=== PATIENT | female | born 1970 | race African-American/Black ===

== ENCOUNTER 2016-10-31 14:56 | Emergency (ER) | payer OTHER ==
--- NOTE | 2016-10-31 15:56 | ER Document Report ---
ED ENT - General Chief Complaint: Sore Throat Stated Complaint: SORE THROAT Time Seen by Provider: 10/31/16 15:22 Mode of Arrival: Ambulatory Information source: Patient Notes: 46-year-old female presents to ED for sore throat that began last week and is progressed all week. She states she has been around her children and grandchildren and they have been tested positive for strep. States that the sore throat is not getting better in fact her pain is up into her ear. TRAVEL OUTSIDE OF THE [place] IN LAST 30 DAYS: No - HPI Patient complains to provider of: Throat problem Onset: Last week Onset/Duration: Worse Quality of pain: Sharp Severity: Moderate Pain Level: 4 Context: Recent Illness Location of pain: Throat Associated symptoms: Ear pain, Sore throat Similar symptoms previously: Yes Recently seen / treated by doctor: No - Related Data Allergies/Adverse Reactions: Penicillins Allergy (Severe, Verified 10/31/16 15:15) shrimp Allergy (Uncoded 10/31/16 15:15) Past Medical History - General Information source: Patient - Social History Smoking Status: Never Smoker Cigarette use (# per day): No Chew tobacco use (# tins/day): No Smoking Education Provided: No Frequency of alcohol use: Rare Drug Abuse: None Occupation: group home, [employer] Lives with: Family Family History: CAD, CVA, Hyperlipidemia, Hypertension, Malignancy Patient has suicidal ideation: No Patient has homicidal ideation: No - Past Medical History Cardiac Medical History: Reports: Hx Hypertension Pulmonary Medical History: Reports: None EENT Medical History: Reports: None Neurological Medical History: Reports: None Endocrine Medical History: Reports: None Renal/ Medical History: Reports: None Malignancy Medical History: Reports: None GI Medical History: Reports: Hx Gastroesophageal Reflux Disease Musculoskeltal Medical History: Reports Hx Musculoskeletal Trauma Skin Medical History: Reports None Psychiatric Medical History: Reports: None Traumatic Medical History: Reports: Hx Fractures - Toe Infectious Medical History: Reports: None Past Surgical History: Reports: Hx Cholecystectomy - Immunizations Immunizations up to date: Yes Hx Diphtheria, Pertussis, Tetanus Vaccination: Yes Review of Systems - Review of Systems Constitutional: Recent illness EENT: Nose discharge, Throat pain Cardiovascular: No symptoms reported Respiratory: No symptoms reported Gastrointestinal: No symptoms reported Genitourinary: No symptoms reported Female Genitourinary: No symptoms reported Musculoskeletal: No symptoms reported Skin: No symptoms reported Hematologic/Lymphatic: No symptoms reported Neurological/Psychological: No symptoms reported -: Yes All other systems reviewed and negative Physical Exam - Vital signs Vitals: Temp Pulse Resp BP Pulse Ox 98.9 F 64 20 166/87 H 100 10/31/16 15:15 10/31/16 15:15 10/31/16 15:15 10/31/16 15:15 10/31/16 15:15 Interpretation: Normal - General General appearance: Appears well, Alert - HEENT Head: Normocephalic, Atraumatic Eyes: Normal Pupils: PERRL Ears: Normal External canal: Normal Tympanic membrane: Normal Sinus: Normal Nasal: Swelling, Clear rhinorrhea Mouth/Lips: Normal Mucous membranes: Normal Pharynx: Erythema, Post nasal drainage. No: Exudate Neck: Normal - Respiratory Respiratory status: No respiratory distress Chest status: Nontender Breath sounds: Normal Chest palpation: Normal - Cardiovascular Rhythm: Regular Heart sounds: Normal auscultation Murmur: No - Abdominal Inspection: Normal Distension: No distension Bowel sounds: Normal Tenderness: Nontender Organomegaly: No organomegaly - Back Back: Normal, Nontender - Extremities General upper extremity: Normal inspection, Nontender, Normal color, Normal ROM , Normal temperature General lower extremity: Normal inspection, Nontender, Normal color, Normal ROM , Normal temperature, Normal weight bearing. No: Gaby's sign - Neurological Neuro grossly intact: Yes Cognition: Normal Orientation: AAOx4 [place] Coma Scale Eye Opening: Spontaneous [place] Com[place] Scale Verbal: Oriented [place] Coma Scale Motor: Obeys Commands [place] Coma Scale Total: 15 Speech: Normal Motor strength normal: LUE, RUE, LLE, RLE Sensory: Normal - Psychological Associated symptoms: Normal affect, Normal mood - Skin Skin Temperature: Warm Skin Moisture: Dry Skin Color: Normal Course - Vital Signs Vital signs: Temp Pulse Resp BP Pulse Ox 98.1 F 65 16 153/85 H 100 10/31/16 16:14 10/31/16 16:14 10/31/16 16:14 10/31/16 16:14 10/31/16 16:14 Discharge - Discharge Clinical Impression: Sore throat Condition: Stable Disposition: HOME, SELF-CARE Instructions: Family Physicians / Practices Additional Instructions: SORE THROAT: Sore throats may be caused by viruses, bacteria, or fungi. Most are due to a virus, and must get better on their own. Bacterial sore throats, particularly those due to "strep," need treatment with antibiotics. If an antibiotic is prescribed, be sure to take the medication for a full 10 days. Failure to take the antibiotic can result in complications such as rheumatic fever. Sometimes, an injection of antibiotics is given instead of pills or liquid. This single "shot" is equal in effectiveness to the oral medication. To relieve symptoms, take acetaminophen for pain. Sip clear liquids frequently, or eat popsicles or ice chips. Anesthetic sprays or lozenges may help. Make sure the air in the room is not too dry. Avoid using decongestants or antihistamines. Call the doctor if there is no improvement in two days, or if you have difficulty breathing, increasing throat pain, high fever, rash, or frequent vomiting. STREP THROAT: Your sore throat is due to the streptococcus germ (strep throat). Strep throat usually makes you feel quite ill with fever and aches, headache, swollen sore throat, and tender bumps under the angles of the jaw. Strep throat requires antibiotic treatment. Although the sore throat may go away by itself, complications such as rheumatic fever, kidney disease, or throat abscess can occur. We usually prescribe antibiotics by mouth. Be sure to take the medicine until it's gone. If you stop early, the strep may come back. If you are vomiting, are severely ill, or can't remember to take pills, we can give you an antibiotic shot. Take acetaminophen or ibuprofen for pain and fever. Sip frequent clear liquids, or use popsicles or ice chips. Anesthetic sprays or lozenges may help. Make sure the air in the room is not too dry. Avoid using decongestants or antihistamines. Call the doctor if there is no improvement in three days, or if you have difficulty breathing, increasing throat pain, high fever, rash, or frequent vomiting. Azithromycin Azithromycin (Zithromax) is a broad spectrum antibiotic in the same class as erythromycin. It can treat a variety of bacterial infections, but is most frequently used for respiratory infections. Azithromycin is extremely long-lasting. It accumulates in body tissues and continues to kill bacteria for many days. In order to improve absorption, Azithromycin should be taken at least one hour before or two hours after a meal. It does not have the same strong tendency to upset the stomach as erythromycin and is usually very well tolerated. Patients who have had a rash or other true allergic reactions to erythromycin should not take this medication. Call if you develop gastrointestinal distress, severe diarrhea, rash, hives, itching, or shortness of breath. FOLLOW-UP CARE: If you have been referred to a physician for follow-up care, call the physician s office for an appointment as you were instructed or within the next two days. If you experience worsening or a significant change in your symptoms, notify the physician immediately or return to the Emergency Department at any time for re-evaluation. Prescriptions: Azithromycin [Zithromax 250 mg Tablet] 250 mg PO ASDIR PRN #6 tablet PRN Reason: Forms: Elevated Blood Pressure, Return to Work Referrals: SHAY QUINTERO MD [Primary Care Provider] - Follow up as needed
[2016-10-31 16:16] VITALS: BP 153/85
== END 2016-10-31 16:14 | disposition home or self-care (01) ==
LOC: ER 14:56
DX: J02.9 Acute pharyngitis, unspecified (principal); Z20.818 Contact with and (suspected) exposure to other bacterial communicable diseases; H92.09 Otalgia, unspecified ear; J34.89 Other specified disorders of nose and nasal sinuses; I10 Essential (primary) hypertension; Z88.0 Allergy status to penicillin; Z91.013 Allergy to seafood
CPT/HCPCS: 99282

== ENCOUNTER 2017-01-31 11:27 | Emergency (ER) | payer OTHER ==
[2017-01-31 11:42] VITALS: BP 177/91
[2017-01-31] MEDS ORDERED: ASPIRIN 325 MG TABLET PO ONE (11:53)
--- NOTE | 2017-01-31 11:56 | ER Document Report ---
ED Medical Screen (RME) - General Chief Complaint: Chest Pain Stated Complaint: CHEST PAIN Time Seen by Provider: 01/31/17 11:52 Mode of Arrival: Wheelchair Information source: Patient TRAVEL OUTSIDE OF THE [place] IN LAST 30 DAYS: No - HPI Patient complains to provider of: chest pain Onset: This morning - Pt has h/o GERD -- developed SSCP while at work earlier today -- thought it was her GERD but pain didn't go away. - Related Data Allergies/Adverse Reactions: Penicillins Allergy (Severe, Verified 01/31/17 11:42) shrimp Allergy (Uncoded 01/31/17 11:42) Home Medications: Current Home Medications Cefdinir 300 mg PO BID 01/31/17 [History] Lisinopril/Hydrochlorothiazide [Lisinopril-Hctz 20-12.5 mg Tab] 1 each PO DAILY 01/31/17 [History] Omeprazole [Prilosec 40 mg Capsule] 40 mg PO BID 01/31/17 [History] Prednisone [Deltasone 20 mg Tablet] 1 tab PO BID 01/31/17 [History] Past Medical History - Past Medical History Cardiac Medical History: Reports: Hx Hypertension Renal/ Medical History: Denies: Hx Peritoneal Dialysis GI Medical History: Reports: Hx Gastroesophageal Reflux Disease Musculoskeltal Medical History: Reports Hx Musculoskeletal Trauma Traumatic Medical History: Reports: Hx Fractures - Toe Past Surgical History: Reports: Hx Cholecystectomy - Immunizations Immunizations up to date: Yes Hx Diphtheria, Pertussis, Tetanus Vaccination: Yes Physical Exam - Vital signs Vitals: Temp Pulse Resp BP Pulse Ox 97.9 F 72 18 177/91 H 100 01/31/17 11:39 01/31/17 11:39 01/31/17 11:39 01/31/17 11:39 01/31/17 11:39 Course - Vital Signs Vital signs: Temp Pulse Resp BP Pulse Ox 97.9 F 72 18 177/91 H 100 01/31/17 11:39 01/31/17 11:39 01/31/17 11:39 01/31/17 11:39 01/31/17 11:39
[2017-01-31 12:15] LABS: ABSOLUTE BASOPHILS # (AUTO) 0.1 10^3/uL (0.0-0.2); ABSOLUTE EOSINOPHILS # (AUTO) 0.1 10^3/uL (0.0-0.6); ABSOLUTE LYMPHOCYTES (AUTO) 3.5 10^3/uL (0.5-4.7); ABSOLUTE MONOCYTES (AUTO) 0.6 10^3/uL (0.1-1.4); ABSOLUTE NEUT (AUTO) 6.3 10^3/uL (1.7-8.2); BASOPHILS % (AUTO) 0.8 % (0-2); EOSINOPHILS % (AUTO) 1.3 % (0-6); HEMATOCRIT 37.1 % (36.0-47.0); HEMOGLOBIN 12.3 g/dL (12.0-15.5); HGB HCT DIFFERENCE -0.2; LYMPHOCYTES % (AUTO) 32.5 % (13-45); MEAN CORPUSCULAR HEMOGLOBIN 23.2 pg (27.0-33.4); MEAN CORPUSCULAR HGB CONC 33.2 g/dL (32.0-36.0); MEAN CORPUSCULAR VOLUME 70 fl (80-97); RED BLOOD COUNT 5.31 10^6/uL (3.72-5.28); RED CELL DISTRIBUTION WIDTH 16.6 % (11.5-14.0); SEGMENTED NEUTROPHILS % (AUTO) 59.4 % (42-78); WHITE BLOOD COUNT 10.6 10^3/uL (4.0-10.5)
--- NOTE | 2017-01-31 12:19 | RADIOLOGY REPORT (SQ) ---
EXAM DESCRIPTION: CHEST PA/LAT COMPLETED DATE/TIME: 01/31/2017 12:12 pm REASON FOR STUDY: CP COMPARISON: 10/11/2013 EXAM PARAMETERS: NUMBER OF VIEWS: two views TECHNIQUE: Digital Frontal and Lateral radiographic views of the chest acquired. RADIATION DOSE: NA LIMITATIONS: none FINDINGS: LUNGS AND PLEURA: No opacities, masses or pneumothorax. No pleural effusion. MEDIASTINUM AND HILAR STRUCTURES: No masses or contour abnormalities. HEART AND VASCULAR STRUCTURES: Heart normal size. No evidence for failure. BONES: No acute findings. HARDWARE: None in the chest. OTHER: No other significant finding. IMPRESSION: NO SIGNIFICANT RADIOGRAPHIC FINDING IN THE CHEST. TECHNICAL DOCUMENTATION: JOB ID: [id number] [employer]- All Rights Reserved
[2017-01-31 12:35] LABS: ALANINE AMINOTRANSFERASE 41 U/L (9-52); ALBUMIN 3.7 g/dL (3.5-5.0); ALKALINE PHOSPHATASE 77 U/L (38-126); ANION GAP 12 (5-19); ASPARTATE AMINO TRANSFERASE 20 U/L (14-36); BILIRUBIN,DIRECT 0.3 mg/dL (0.0-0.4); BILIRUBIN,TOTAL 0.5 mg/dL (0.2-1.3); BLOOD UREA NITROGEN 11 mg/dL (7-20); CALCIUM 8.7 mg/dL (8.4-10.2); CARBON DIOXIDE 29 mmol/L (22-30); CHLORIDE 103 mmol/L (98-107); CREATINE KINASE 144 U/L (30-135); CREATININE RESULT 0.82 mg/dL (0.52-1.25); GLUCOSE 78 mg/dL (75-110); POTASSIUM 3.8 mmol/L (3.6-5.0); SODIUM 143.8 mmol/L (137-145); TOTAL PROTEIN 6.9 g/dL (6.3-8.2)
[2017-01-31 12:46] LABS: CREATINE KINASE MB 1.68 ng/mL (<4.55)
[2017-01-31 12:47] LABS: TROPONIN I < 0.012 ng/mL
--- NOTE | 2017-01-31 13:00 | EKG REPORT ---
SEVERITY:- ABNORMAL ECG - SINUS RHYTHM PROBABLE LEFT ATRIAL ABNORMALITY LEFT VENTRICULAR HYPERTROPHY : Confirmed by: David Umana MD 31-Jan-2017 12:59:20
--- NOTE | 2017-01-31 15:44 | ER Document Report ---
ED General - General Chief Complaint: Chest Pain Stated Complaint: CHEST PAIN Time Seen by Provider: 01/31/17 11:52 Mode of Arrival: Wheelchair TRAVEL OUTSIDE OF THE [place] IN LAST 30 DAYS: No - HPI Patient complains to provider of: Chest pain Notes: Patient coming in for evaluation of chest pain. Patient states chest pain started after drinking a soda today chest pain started around 9-930. Patient states history of GERD however the symptoms today were different in her GERD in the past. States the pain took longer and was more intense to relieve itself. Upon my evaluation patient is pain-free states history of hypertension. Denies any smoking alcohol or drug abuse. Denies any recent travel denies any shortness of breath. Denies fevers chills nausea vomiting diarrhea abdominal pain. - Related Data Allergies/Adverse Reactions: Penicillins Allergy (Severe, Verified 01/31/17 11:42) shrimp Allergy (Uncoded 01/31/17 11:42) Home Medications: Current Home Medications Cefdinir 300 mg PO BID 01/31/17 [History] Lisinopril/Hydrochlorothiazide [Lisinopril-Hctz 20-12.5 mg Tab] 1 each PO DAILY 01/31/17 [History] Omeprazole [Prilosec 40 mg Capsule] 40 mg PO BID 01/31/17 [History] Prednisone [Deltasone 20 mg Tablet] 1 tab PO BID 01/31/17 [History] Past Medical History - General Information source: Patient - Social History Smoking Status: Former Smoker Chew tobacco use (# tins/day): No Frequency of alcohol use: None Drug Abuse: None Family History: CAD, CVA, Hyperlipidemia, Hypertension, Malignancy Patient has suicidal ideation: No Patient has homicidal ideation: No - Past Medical History Cardiac Medical History: Reports: Hx Hypertension Renal/ Medical History: Denies: Hx Peritoneal Dialysis GI Medical History: Reports: Hx Gastroesophageal Reflux Disease Musculoskeltal Medical History: Reports Hx Musculoskeletal Trauma Traumatic Medical History: Reports: Hx Fractures - Toe Past Surgical History: Reports: Hx Cholecystectomy - Immunizations Immunizations up to date: Yes Hx Diphtheria, Pertussis, Tetanus Vaccination: Yes Review of Systems - Review of Systems Constitutional: No symptoms reported EENT: No symptoms reported Cardiovascular: Chest pain Respiratory: No symptoms reported Gastrointestinal: No symptoms reported Genitourinary: No symptoms reported Female Genitourinary: No symptoms reported Musculoskeletal: No symptoms reported Skin: No symptoms reported Hematologic/Lymphatic: No symptoms reported Neurological/Psychological: No symptoms reported Physical Exam - Vital signs Vitals: Temp Pulse Resp BP Pulse Ox 97.9 F 72 18 177/91 H 100 01/31/17 11:39 01/31/17 11:39 01/31/17 11:39 01/31/17 11:39 01/31/17 11:39 Interpretation: Normal - General General appearance: Appears well, Alert - HEENT Head: Normocephalic, Atraumatic Eyes: Normal Pupils: PERRL - Respiratory Respiratory status: No respiratory distress Chest status: Nontender Breath sounds: Normal Chest palpation: Normal - Cardiovascular Rhythm: Regular Heart sounds: Normal auscultation Murmur: No - Abdominal Inspection: Normal Distension: No distension Bowel sounds: Normal Tenderness: Nontender Organomegaly: No organomegaly - Back Back: Normal, Nontender - Extremities General upper extremity: Normal inspection, Nontender, Normal color, Normal ROM , Normal temperature General lower extremity: Normal inspection, Nontender, Normal color, Normal ROM , Normal temperature, Normal weight bearing. No: Gaby's sign - Neurological Neuro grossly intact: Yes Cognition: Normal Orientation: AAOx4 [place] Coma Scale Eye Opening: Spontaneous [place] Coma Scale Verbal: Oriented [place] Coma Scale Motor: Obeys Commands [place] Coma Scale Total: 15 Speech: Normal Motor strength normal: LUE, RUE, LLE, RLE Sensory: Normal - Psychological Associated symptoms: Normal affect, Normal mood - Skin Skin Temperature: Warm Skin Moisture: Dry Skin Color: Normal Course - Re-evaluation Re-evalutation: 01/31/17 15:54 Troponins negative 2. More likely patient may have suffered esophageal spasm with the pain occurring soon after drinking a soda. Patient was encouraged follow-up primary care physician. No signs of critical etiology seen on EKG chest x-ray laboratory studies The patient has atypical chest pain as the patient's chest pain is not suggestive of pulmonary embolus, cardiac ischemia, aortic dissection, or other serious etiology. Given the extremely low risk of these diagnoses further testing and evaluation for these possibilities does not appear to be indicated at this time. The patient has been instructed to return if the symptoms worsen or change in any way. - Vital Signs Vital signs: Temp Pulse Resp BP Pulse Ox 97.9 F 72 18 177/91 H 100 01/31/17 11:39 01/31/17 11:39 01/31/17 11:39 01/31/17 11:39 01/31/17 11:39 - Laboratory Result Diagrams: 01/31/17 11:50 01/31/17 11:50 Laboratory results interpreted by me: 01/31/17 01/31/17 11:50 11:50 WBC 10.6 H RBC 5.31 H MCV 70 L MCH 23.2 L RDW 16.6 H Creatine Kinase 144 H Discharge - Discharge Clinical Impression: Esophageal spasm Pain in the chest Qualifiers: Chest pain type: unspecified Qualified Code(s): R07.9 - Chest pain, unspecified Condition: Good Instructions: Esophageal Spasm ([facility]), Reflux Disease (GERD) ([facility]) Additional Instructions: I believe her symptoms today are more likely due to very bad indigestion acid reflux or esophageal spasm. Your laboratory studies EKG chest x-ray did not reveal any signs of significant cardiac pathology no lung pathology. All of your lab work looking at her heart is negative. Would recommend follow-up with your primary care physician as needed return to the ER symptoms worsen. Referrals: SHAY QUINTERO MD [Primary Care Provider] - Follow up as needed
== END 2017-01-31 16:46 | disposition home or self-care (01) ==
LOC: ER 11:27
DX: R07.9 Chest pain, unspecified (principal); K22.4 Dyskinesia of esophagus; I10 Essential (primary) hypertension; Z79.899 Other long term (current) drug therapy; Z87.891 Personal history of nicotine dependence
CPT/HCPCS: 36415; 71020; 80053; 82550; 82553; 84484; 85025; 93005; 93010; 99285

== ENCOUNTER 2018-07-30 12:47 | Emergency (ER) | payer OTHER ==
--- NOTE | 2018-07-30 16:36 | ER Document Report ---
HPI - HPI Patient complains to provider of: Sore throat Time Seen by Provider: 07/30/18 16:28 Onset: This morning Onset/Duration: Persistent Severity: Severe Pain Level: 4 Context: Patient presents to the emergency department with complaints of sore throat that started this morning. Patient reports she noted white spots on the back of her tonsils. She denies fever vomiting diarrhea. Reports she gets strep throat often. 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 Associated Symptoms: Sore throat Exacerbated by: Denies Relieved by: Denies Similar symptoms previously: No Recently seen / treated by doctor: No - REPRODUCTIVE Reproductive: DENIES: : Past Medical History - General Information source: Patient - Social History Smoking Status: Unknown if Ever Smoked Cigarette use (# per day): No Frequency of alcohol use: Rare Drug Abuse: None Occupation: [employer] Lives with: Family Family History: CAD, CVA, Hyperlipidemia, Hypertension, Malignancy Patient has suicidal ideation: No Patient has homicidal ideation: No - Past Medical History Cardiac Medical History: Reports: Hx Hypertension Renal/ Medical History: Denies: Hx Peritoneal Dialysis GI Medical History: Reports: Hx Gastroesophageal Reflux Disease Musculoskeletal Medical History: Reports Hx Musculoskeletal Trauma Traumatic Medical History: Reports: Hx Fractures - Toe Past Surgical History: Reports: Hx Cholecystectomy - Immunizations Immunizations up to date: Yes Hx Diphtheria, Pertussis, Tetanus Vaccination: Yes Vertical Provider Document - CONSTITUTIONAL Agree With Documented VS: Yes Exam Limitations: No Limitations General Appearance: WD/WN, No Apparent Distress - INFECTION CONTROL TRAVEL OUTSIDE OF THE [place] IN LAST 30 DAYS: No - HEENT HEENT: Atraumatic, Normocephalic, Pharyngeal Exudate, Pharyngeal Erythema. negative: Conjuctival Injection - NECK Neck: Supple - RESPIRATORY Respiratory: Breath Sounds Normal, No Respiratory Distress - CARDIOVASCULAR Cardiovascular: Regular Rate, Regular Rhythm - GI/ABDOMEN Gastrointestinal: Abdomen Soft, Abdomen Non-Tender - MUSCULOSKELETAL/EXTREMETIES Musculoskeletal/Extremeties: MAMADOU WESTON - NEURO Level of Consciousness: Awake, Alert, Appropriate Motor/Sensory: No Motor Deficit - DERM Integumentary: Warm, Dry, No Rash Course - Re-evaluation Re-evalutation: 07/30/18 16:38 Patient is allergic to penicillin treated with a Z-Reyes. Instructed on the importance of monitoring her temperature take Tylenol as indicated return to the emergency department for any concerns worsening symptoms. She verbalized understanding to all instructions. - Vital Signs Vital signs: Temp Pulse Resp BP Pulse Ox 98.4 F 71 16 172/76 H 100 07/30/18 13:02 07/30/18 13:02 07/30/18 13:02 07/30/18 13:02 07/30/18 13:02 Discharge - Discharge Clinical Impression: Sore throat, Tonsillar exudate Disposition: HOME, SELF-CARE Instructions: Azithromycin ([facility]), Sore Throat ([facility]) Additional Instructions: *You have been evaluated for a sore throat, tonsillar exudate *Take medication as prescribed *Warm salt water gargles and throat lozenges for comfort *Change toothbrush after two days of antibiotics *Do not let anyone drink/eat after you *Good hand washing *Follow-up with a primary care provider within one week *Return to ED for worsening condition change, needs Prescriptions: Azithromycin [Zithromax 250 mg Tablet] 250 mg PO ASDIR PRN #6 tablet PRN Reason: Forms: Return to Work Referrals: SHAY QUINTERO MD [Primary Care Provider] - Follow up in 1 week
[2018-07-30 16:44] VITALS: BP 153/85
== END 2018-07-30 16:48 | disposition home or self-care (01) ==
LOC: EH 12:47 → ER 12:47
DX: J02.9 Acute pharyngitis, unspecified (principal); R09.89 Other specified symptoms and signs involving the circulatory and respiratory systems; I10 Essential (primary) hypertension; Z88.0 Allergy status to penicillin
CPT/HCPCS: 99282

== ENCOUNTER 2018-09-17 21:32 | Emergency (ER) | payer SELFPAY ==
[2018-09-17 21:53] VITALS: BP 150/73
[2018-09-17] MEDS ORDERED: DOXYCYCLINE HYCLATE 100 MG TABLET PO ONE (23:32)
--- NOTE | 2018-09-17 23:33 | ER Document Report ---
ED Extremity Problem, Lower - General Chief Complaint: Skin Problem Stated Complaint: ANKLE INJURY Time Seen by Provider: 09/17/18 23:29 Primary Care Provider: SHAY QUINTERO MD [Primary Care Provider] - Follow up as needed Notes: Patient is a 48-year-old female that comes to the emergency department for chief complaint of pain, redness, and slight swelling to the right lateral distal leg. She started noticing it yesterday but today became much more noticeable and uncomfortable. She denies calf swelling, ankle pain, foot pain, or any obvious injury. She states she was [place] the beach but she did not notice sustaining a sting, bite, or wound. She is not a diabetic. She denies any other complaints including fever/chills, nausea/vomiting. TRAVEL OUTSIDE OF THE [place] IN LAST 30 DAYS: No - Related Data Allergies/Adverse Reactions: Penicillins Allergy (Severe, Verified 09/17/18 21:37) shrimp Allergy (Uncoded 09/17/18 21:37) Past Medical History - General Information source: Patient - Social History Smoking Status: Never Smoker Frequency of alcohol use: None Drug Abuse: None Lives with: Family Family History: CAD, CVA, Hyperlipidemia, Hypertension, Malignancy - Past Medical History Cardiac Medical History: Reports: Hx Hypertension Renal/ Medical History: Denies: Hx Peritoneal Dialysis GI Medical History: Reports: Hx Gastroesophageal Reflux Disease Musculoskeletal Medical History: Reports Hx Musculoskeletal Trauma Traumatic Medical History: Reports: Hx Fractures - Toe Past Surgical History: Reports: Hx Cholecystectomy - Immunizations Immunizations up to date: Yes Hx Diphtheria, Pertussis, Tetanus Vaccination: Yes Review of Systems - Review of Systems Constitutional: No symptoms reported EENT: No symptoms reported Cardiovascular: No symptoms reported Respiratory: No symptoms reported Gastrointestinal: No symptoms reported Genitourinary: No symptoms reported Female Genitourinary: No symptoms reported Musculoskeletal: See HPI Skin: See HPI Hematologic/Lymphatic: No symptoms reported Neurological/Psychological: No symptoms reported Physical Exam - Vital signs Vitals: Temp Pulse Resp BP Pulse Ox 98.4 F 82 18 150/73 H 100 09/17/18 21:52 09/17/18 21:52 09/17/18 21:52 09/17/18 21:52 09/17/18 21:52 - Notes Notes: GENERAL: Alert, interacts well. No acute distress. HEAD: Normocephalic, atraumatic. EYES: Pupils equal, round, and reactive to light. Extraocular movements intact. ENT: Oral mucosa moist, tongue midline. Oropharynx unremarkable. Airway patent. LUNGS: Clear to auscultation bilaterally, no wheezes, rales, or rhonchi. No respiratory distress. HEART: Regular rate and rhythm. No murmur ABDOMEN: Soft, non-tender. Non-distended. Bowel sounds present in all 4 quadrants. GENITOURINARY: Deferred EXTREMITIES: There is erythema, tenderness, abnormal heat to the lateral aspect of the right distal tibia although this does not extend to include the ankle joint. Ankle and knee joint have full range of motion and are nontender. Normal distal neurovascular exam. Normal lower extremity exam otherwise. BACK: no cervical, thoracic, lumbar midline tenderness. No saddle anesthesia, normal distal neurovascular exam. Moves all extremities in full range of motion. NEUROLOGICAL: Alert and oriented x3. Normal speech. Cranial nerves II through XII grossly intact. PSYCH: Normal affect, normal mood. SKIN: Warm, dry, normal turgor. Course - Re-evaluation Re-evalutation: Physical examination is consistent with cellulitis. I did review venous Doppler ultrasound performed in triage and this was negative on preliminary results. Physical examination does not suggest blood clot. I see no evidence of septic joint. Patient is not a diabetic, has no fever. I do not see wound which explains the cellulitis, however patient recently was at the beach and states she might of had scratches at that time. Because of possible salt water exposure to the wound causing cellulitis she will be covered for vibrio species with doxycycline as well. Her tetanus is reportedly up-to-date. Discussed treatment, expectations, follow-up, and return precautions in detail. Patient states understanding and agreement. - Vital Signs Vital signs: Temp Pulse Resp BP Pulse Ox 98.4 F 82 18 150/73 H 100 09/17/18 21:52 09/17/18 21:52 09/17/18 21:52 09/17/18 21:52 09/17/18 21:52 Discharge - Discharge Clinical Impression: Right leg pain Cellulitis Qualifiers: Site of cellulitis: extremity Site of cellulitis of extremity: lower extremity Laterality: right Qualified Code(s): L03.115 - Cellulitis of right lower limb Condition: Stable Disposition: HOME, SELF-CARE Additional Instructions: The venous Doppler ultrasound performed tonight was negative for clot. Your evaluation is consistent with cellulitis, a skin infection. Take antibiotics as prescribed to completion. I recommend elevating your foot, you can take Tylenol or ibuprofen for pain. Follow-up with primary care. Return if you worsen in any way including spreading redness, increased swelling or pain, fever/chills, or any other concerning or worsening symptoms. Prescriptions: Doxycycline Hyclate 100 mg PO BID #14 capsule Forms: Return to Work Referrals: SHAY QUINTERO MD [Primary Care Provider] - Follow up as needed
--- NOTE | 2018-09-18 00:41 | RADIOLOGY REPORT (SQ) ---
EXAM DESCRIPTION: US EXTREMITY VEINS UNILATERAL COMPLETED DATE/TME: 09/17/2018 00:00 CLINICAL HISTORY: REDNESS PAIN SWELLING RIGHT CALF COMPARISON: None. TECHNIQUE: Grayscale, color Doppler, and spectral Doppler imaging of the right lower extremity venous system. Suboptimal evaluation of the distal right superficial femoral vein. FINDINGS: Normal compressibility and flow identified in the right common femoral, superficial femoral, popliteal, and visualized calf veins. No echogenic thrombus identified. No soft tissue abnormalities. Comparison images of the left common femoral vein were obtained demonstrating normal carotid flow and compressibility. IMPRESSION: No evidence of right lower extremity DVT.
== END 2018-09-18 00:44 | disposition home or self-care (01) ==
LOC: ER 21:32
DX: L03.115 Cellulitis of right lower limb (principal); M79.661 Pain in right lower leg; I10 Essential (primary) hypertension; Z88.0 Allergy status to penicillin; Z91.013 Allergy to seafood
CPT/HCPCS: 93971; 99283

== ENCOUNTER 2018-10-09 10:46 | Emergency (ER) | payer SELFPAY ==
--- NOTE | 2018-10-09 11:02 | ER Document Report ---
HPI - HPI Time Seen by Provider: 10/09/18 10:51 Pain Level: 1 Notes: Patient is a 48-year-old female presented to the emergency department chief complaint of right ankle and foot swelling. Patient reports 1 month ago she was seen here in this emergency department for the same thing. At that time she had right foot and ankle swelling with cellulitis to the right lateral ankle. She states we put her on antibiotic and she states that helped the cellulitis. She states that we also checked her for a DVT which was negative. Patient reports she was doing fine and over the last 2 days the swelling has returned. She denies any specific pain but reports that it is uncomfortable due to the swelling. Patient does not believe that she had a trauma to the foot but is unsure. She states that we did not do x-rays last time she was here. She denies any history of peripheral edema. She has no peripheral edema in her left lower extremity. - CONSTITUTIONAL Constitutional: DENIES: Fever, Chills - EENT EENT: DENIES: Sore Throat, Ear Pain, Eye problems - NEURO Neurology: DENIES: Headache, Weakness, Vision blurred, Dizzinesss / Vertigo - CARDIOVASCULAR Cardiovascular: DENIES: Chest pain - RESPIRATORY Respiratory: DENIES: Trouble Breathing, Coughing - GASTROINTESTINAL Gastrointestinal: DENIES: Abdominal Pain, Black / Bloody Stools - URINARY Urinary: DENIES: Dysuria, Urgency, Frequency - REPRODUCTIVE Reproductive: DENIES: : - MUSCULOSKELETAL Musculoskeletal: REPORTS: Extremity pain - right ankle Past Medical History - General Information source: Patient - Social History Smoking Status: Never Smoker Chew tobacco use (# tins/day): No Frequency of alcohol use: Occasional Drug Abuse: None Family History: CAD, CVA, Hyperlipidemia, Hypertension, Malignancy Patient has suicidal ideation: No Patient has homicidal ideation: No - Past Medical History Cardiac Medical History: Reports: Hx Hypertension Renal/ Medical History: Denies: Hx Peritoneal Dialysis GI Medical History: Reports: Hx Gastroesophageal Reflux Disease Musculoskeletal Medical History: Reports Hx Musculoskeletal Trauma Traumatic Medical History: Reports: Hx Fractures - Toe Past Surgical History: Reports: Hx Cholecystectomy - Immunizations Immunizations up to date: Yes Hx Diphtheria, Pertussis, Tetanus Vaccination: Yes Vertical Provider Document - CONSTITUTIONAL Notes: PHYSICAL EXAMINATION: GENERAL: Well-appearing, well-nourished and in no acute distress. HEAD: Atraumatic, normocephalic. EYES: Pupils equal round extraocular movements intact, conjunctiva are normal. ENT: Nares patent NECK: Normal range of motion LUNGS: No respiratory distress Musculoskeletal: Normal range of motion, edema noted to left lower extremity at the ankle and foot specifically on the lateral aspect, strong dorsalis pedis pulse, normal motor and sensation, cap refill less than 3 seconds. No erythema, ecchymosis or fever. NEUROLOGICAL: Normal speech, normal gait. PSYCH: Normal mood, normal affect. SKIN: Warm, Dry, normal turgor, no rashes or lesions noted. - INFECTION CONTROL TRAVEL OUTSIDE OF THE [place] IN LAST 30 DAYS: No Course - Re-evaluation Re-evalutation: Ankle X-Ray 10/09/18 10:58 IMPRESSION: No fracture or dislocation of the right ankle. Diffuse soft tissue swelling. - Vital Signs Vital signs: Temp Pulse Resp BP Pulse Ox 97.8 F 70 18 173/83 H 100 10/09/18 10:51 10/09/18 10:51 10/09/18 10:51 10/09/18 10:51 10/09/18 10:51 Discharge - Discharge Clinical Impression: Lower leg edema Condition: Stable Disposition: HOME, SELF-CARE Additional Instructions: The x-ray taken today was negative for any fracture or dislocation. There does show edema or soft tissue swelling. Use the T[place] wrap to help with compression. Elevate the extremity, drink plenty of fluids. Follow-up with your primary care provider for further evaluation of this. Take ibuprofen 600 mg every 6 hours. Return to the emergency department with any new or worsening symptoms to include worsening pain, swelling, development of chest pain, shortness of breath or any other symptom that is concerning to you. Referrals: SHAY QUINTERO MD [Primary Care Provider] - Follow up as needed
--- NOTE | 2018-10-09 11:35 | RADIOLOGY REPORT (SQ) ---
EXAM DESCRIPTION: ANKLE RIGHT COMPLETE COMPLETED DATE/TIME: 10/09/2018 11:15 am REASON FOR STUDY: ankle swelling denies injury COMPARISON: None. NUMBER OF VIEWS: Three views. TECHNIQUE: AP, lateral, and oblique radiographic images acquired of the right ankle. LIMITATIONS: None. FINDINGS: MINERALIZATION: Normal. BONES: No acute fracture or dislocation. No worrisome bone lesions. JOINTS: No effusions. SOFT TISSUES: Diffuse soft tissue swelling about the calf and ankle. OTHER: No other significant finding. IMPRESSION: No fracture or dislocation of the right ankle. Diffuse soft tissue swelling. TECHNICAL DOCUMENTATION: JOB ID: [id number] [employer]- All Rights Reserved Reading location - IP/workstation name: [email or web address]
[2018-10-09 12:00] VITALS: BP 164/91
== END 2018-10-09 12:24 | disposition home or self-care (01) ==
LOC: ER 10:46
DX: R60.0 Localized edema (principal); M25.571 Pain in right ankle and joints of right foot; I10 Essential (primary) hypertension
CPT/HCPCS: 99283

== ENCOUNTER 2018-12-21 17:08 | Emergency (ER) | payer OTHER ==
[2018-12-21] MEDS ORDERED: IBUPROFEN 800 MG TABLET PO ONE (18:52)
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
[2018-12-21] MEDS ORDERED: HYDROCODONE/ACETAMINOPHEN 5-325 MG TABLET PO ONE (20:38)
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
[2018-12-21 23:32] VITALS: BP 147/90
== END 2018-12-21 23:31 | disposition home or self-care (01) ==
LOC: ER 17:08
DX: M54.5 Low back pain (principal); V87.7XXA Person injured in collision between other specified motor vehicles (traffic), initial encounter; I10 Essential (primary) hypertension; Z90.49 Acquired absence of other specified parts of digestive tract
CPT/HCPCS: 72110; 99283